=== PATIENT | male | born 1965 | race Two or more races ===

== ENCOUNTER 2019-10-07 18:09 | Emergency (ER) | payer OTHER ==
[~2019-10-07] VITALS: Ht 165.1 cm; Wt 72.6 kg
[2019-10-07 18:20] VITALS: BP 156/96
[2019-10-07] MEDS ORDERED: Morphine Sulfate 2mg/ml Inj(IV/IM USE ONLY) IVP ONE (18:45)
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
--- NOTE | 2019-10-07 19:53 | Diagnostic Imaging Report ---
EXAM: CT Lumbar Spine Without Intravenous Contrast CLINICAL HISTORY: PAIN TECHNIQUE: Axial computed tomography images of the lumbar spine without intravenous contrast. CTDI is 15.4 mGy and DLP is 607.1 mGy-cm. One or more of the following dose reduction techniques were used: automated exposure control, adjustment of the mA and/or kV according to patient size, use of iterative reconstruction technique. COMPARISON: None FINDINGS: Vertebrae: There are no acute fractures, dislocations, or subluxations of the lumbar spine. The vertebral body heights are maintained. Discs/spinal canal/neural foramina: Intervertebral disc spaces are incompletely evaluated on CT. There is no evidence of high-grade central canal or neural foraminal stenosis. Soft tissues: Unremarkable. Liver: Incidental note is made of hepatic steatosis. IMPRESSION: No acute fracture or dislocation of the lumbar spine.
--- NOTE | 2019-10-07 19:55 | Diagnostic Imaging Report ---
INDICATION: Headache TECHNIQUE: Multiple, contiguous 2.5 mm axial cuts of the brain are obtained from the posterior fossa to the cranial vault. Sagittal and coronal reformatted images provided. No IV contrast is administered. COMPARISON: FINDINGS: No intracranial hemorrhage, abnormal intra- or extra-axial collections or parenchymal lesions are seen. The shape and configuration of the cortical sulci, basal cisterns and ventricles are within normal limits. The brady-white differentiation is preserved. No evidence of mass effect, midline shift, or edema. The osseous structures are unremarkable. The visualized portions of the paranasal sinuses are clear. IMPRESSION: Normal non-contrast CT scan of the head.
[2019-10-07] MEDS ORDERED: ROBAXIN-750750 MG PO (20:03)
[2019-10-07] MEDS ORDERED: TYLENOL EXTRA500 MG ORAL (20:03)
[2019-10-07 20:10] VITALS: BP 141/92
[2019-10-07 20:30] VITALS: BP 141/92
== END 2019-10-07 20:30 | disposition home or self-care (01) ==
LOC: EDBD 18:09 → EMR 18:57
DX: S16.1XXA Strain of muscle, fascia and tendon at neck level, initial encounter (principal); S39.012A Strain of muscle, fascia and tendon of lower back, initial encounter; M54.41 Lumbago with sciatica, right side; R51 Headache; V43.52XA Car driver injured in collision with other type car in traffic accident, initial encounter; Y92.410 Unspecified street and highway as the place of occurrence of the external cause; R20.0 Anesthesia of skin; R11.0 Nausea; M50.320 Other cervical disc degeneration, mid-cervical region, unspecified level; K76.0 Fatty (change of) liver, not elsewhere classified
CPT/HCPCS: 70450; 72125; 72131; 96372; 96374; J2270; J2405; Z7502; 99284